=== PATIENT | male | born 1955 | race Caucasian/White ===

== ENCOUNTER 2020-11-01 14:55 | Emergency (ER) | payer MEDICARE ==
[2020-11-01 15:00] VITALS: BP 165/113; PULSE 117; RESP 20; TEMP 97.7
[2020-11-01] MEDS ORDERED: KETOROLAC 15 MG/ML 1 ML VIAL IM STA (15:12)
--- NOTE | 2020-11-01 15:14 | ED ---
General Adult HPI - General Chief complaint: Abdominal Pain Stated complaint: Back Pain Time Seen by Provider: 11/01/20 15:06 Source: patient Mode of arrival: ambulatory Limitations: no limitations - History of Present Illness Initial comments: Patient is a 64-year-old male presenting to the emergency Department with complaints of bilateral low back pain for the past 3 days. Patient states he feels like the pain is over "both of his kidneys." He states he's been taking Aleve before he golfs, it does help. Patient states today after he golfed he w ent home and mowed the lawn and then he was picking up stuff in his garage and had a hard time standing back up straight. He states the pain is never this severe. He denies any hematuria, no fevers or chills, no history of back surgeries. Denies any bowel or bladder incontinence, no numbness and tingling down his extremities. He has no further complaints. Upon arrival to the ER his vitals are stable. - Related Data Previous Rx's Medication Instructions Recorded Ketorolac [Toradol] 10 mg PO Q8HR #8 tab 11/01/20 Allergies Allergy/AdvReac Type Severity Reaction Status Date / Time Sulfa (Sulfonamide Allergy Unknown Verified 11/01/20 15:01 Antibiotics) Review of Systems ROS Statement: Those systems with pertinent positive or pertinent negative responses have been documented in the HPI. ROS Other: All systems not noted in ROS Statement are negative. Past Medical History Past Medical History: No Reported History History of Any Multi-Drug Resistant Organisms: None Reported Additional Past Surgical History / Comment(s): eye surgery Past Psychological History: No Psychological Hx Reported Smoking Status: Never smoker Past Alcohol Use History: None Reported Past Drug Use History: None Reported General Exam - General Exam Comments Initial Comments: GENERAL: Patient is well-developed and well-nourished. Patient is nontoxic and in no acute distress. HEAD: Atraumatic, normocephalic. EYES: Pupils equal round and reactive to light, extraocular movements intact, sclera anicteric, conjunctiva are normal. Eyelids were unremarkable. ENT: TMs normal, nares patent, oropharynx clear without exudates. Moist mucous membranes. NECK: Normal range of motion, supple without lymphadenopathy or JVD. LUNGS: Unlabored respirations. Breath sounds clear to auscultation bilaterally and equal. No wheezes rales or rhonchi. HEART: Regular rate and rhythm without murmurs, rubs or gallops. ABDOMEN: Soft, nontender, normoactive bowel sounds. No guarding, no rebound. No masses appreciated. : Deferred MUSCULOSKELETAL: Normal extremities with adequate strength and normal range of motion, no pitting or edema. No clubbing or cyanosis. Tenderness to palpation on lumbar paraspinals NEUROLOGICAL: Patient is alert and oriented x 3. Motor and sensory are also intact. Cranial nerves II through XII grossly intact. Symmetrical smile. Normal speech, normal gait. PSYCH: Normal mood, normal affect. SKIN: Warm, Dry, normal turgor, no rashes or lesions noted. Limitations: no limitations Course Vital Signs 11/01/20 14:56 Temperature 97.7 F Pulse Rate 117 H Respiratory 20 Rate Blood Pressure 165/113 O2 Sat by Pulse 97 Oximetry Medical Decision Making - Medical Decision Making Patient is 64-year-old male here with bilateral lumbar pain increasing over the past 3 days. His vital signs are stable. Urine shows no evidence of hematuria. X-ray showed no acute fractures dislocations. His symptoms are consistent wit h muscle skeletal or pain, spasm. I discussed these findings with the patient. I did give him a shot of Toradol today, he did report improvement in his symptoms. I recommended alternating between Tylenol and Motrin for his pain control, heat to the area, gentle stretching. I also recommended limiting his physical activity for 1-2 days. He is in agreement with this plan of care and he is stable for discharge. He can follow up with his PCP if symptoms persist. - Lab Data Lab Results 11/01/20 Range/Units 15:28 Urine Color Yellow Urine Appearance Clear (Clear) Urine pH 6.0 (5.0-8.0) Ur Specific [place] 1.025 (1.001-1.035) Urine Protein Negative (Negative) Urine Glucose (UA) Negative (Negative) Urine Ketones Negative (Negative) Urine Blood Negative (Negative) Urine Nitrite Negative (Negative) Urine Bilirubin Negative (Negative) Urine Urobilinogen <2.0 (<2.0) mg/dL Ur Leukocyte Esterase Negative (Negative) Disposition Clinical Impression: Lumbar paraspinal muscle spasm, Lumbar strain Disposition: HOME SELF-CARE Condition: Stable Instructions (If sedation given, give patient instructions): Acute Low Back Pain (ED) Additional Instructions: Please return to the Emergency Department if symptoms worsen or any other concerns. Recommend Aleve or ibuprofen for discomfort, heat to the area, warm showers. Stretching as discussed. Limited to your physical activity for 1-2 days. Follow-up with your regular doctor if symptoms persist. Prescriptions: Ketorolac [Toradol] 10 mg PO Q8HR #8 tab Is patient prescribed a controlled substance at d/c from ED?: No Referrals: Eliazar Hassan MD [Primary Care Provider] - 1-2 days Time of Disposition: 16:29
[2020-11-01 15:37] LABS: Appearance,Urine Clear (Clear); Bilirubin,Urine Negative (Negative); Blood,Urine Negative (Negative); Color,Urine Yellow; Glucose,Urine (UA) Negative (Negative); Ketones,Urine Negative (Negative); Leukocyte Esterase,Urine Negative (Negative); Nitrite,Urine Negative (Negative); Protein,Urine Negative (Negative); Specific Gravity,Urine 1.025 (1.001-1.035); Urobilinogen,Urine <2.0 mg/dL (<2.0)
--- NOTE | 2020-11-01 15:57 | XR ---
EXAMINATION TYPE: XR lumbar spine 2 or 3V DATE OF EXAM: 11/01/2020 CLINICAL HISTORY: Low back pain for 3 days. TECHNIQUE: Frontal and lateral images of the lumbar spine are obtained. COMPARISON: None FINDINGS: There are 5 lumbar type vertebral bodies identified. There is grade 1 anterolisthesis L4 o n L5. Vertebral bodies and disc space heights fairly well maintained. Overlying Soft tissues are unre markable. IMPRESSION: As above.
== END 2020-11-01 16:48 | disposition home or self-care (01) ==
LOC: EC 14:55
DX: S39.012A Strain of muscle, fascia and tendon of lower back, initial encounter (principal); R10.9 Unspecified abdominal pain; X58.XXXA Exposure to other specified factors, initial encounter
CPT/HCPCS: 81003; 72100; 99283; 96372; J1885

== ENCOUNTER → 2021-07-18 | Day surgery (SDC) | payer MEDICARE ==
[2021-07-11 12:19] VITALS: BMI 33.0
[~2021-07-18] MED LIST: BUPIVACAINE (PF) 0.25% 30 ML VIAL SQ ONE; DEXAMETHASONE SOD PHOSPHATE 4 MG/ML 1 ML VIAL IV ONE; HYDROmorphone 0.5 MG/0.5 ML SYRINGE IVP PRN; KETOROLAC 15 MG/ML 1 ML VIAL ONE; LACTATED RINGERS 1,000 ML IV ONE; LACTATED RINGERS 1,000 ML IV SCH; LIDOCAINE 1% (10MG/ML) FOR IV START INTRADERMA PRN; MIDAZOLAM 2 MG/2 ML VIAL ONE; ONDANSETRON 4 MG/2 ML VIAL IVP ONE; PHENYLEPHRINE-0.9% NACL SYG 1,000 MCG/10 ML SYRINGE ONE; PROPOFOL 10 MG/ML 20 ML VIAL IV ONE; ePHEDrine 50 MG/ML 1 ML AMP ONE; fentaNYL (PF) 50 MCG/ML 2 ML AMP ONE
[2021-07-18 13:59] VITALS: TEMP 97.1
--- NOTE | 2021-07-18 14:08 | P.OP ---
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 Postoperative Diagnosis: Same Procedure(s) Performed: Arthrodesis second toe left foot Surgeon: Omid Huertas Estimated Blood Loss (ml): 1 Description of Procedure: On the date of surgery the patient was taken to the operating room in good condition placed on the operating table supine position where an IV was started and adequate general anesthetic agents were utilized seizure was then further supplemented with 7 mL of 0.25% plain Marcaine given in a digital block to the second toe the patient's left foot The patient's left foot was then prepped and draped in the usual aseptic manner and over heavy web roll padding an ankle tourniquet was placed above the malleoli of the patient's left ankle patient's left foot and ankle were then elevated and exsanguinated of blood utilizing an Esmarch bandage. The ankle tourniquet was then inflated to approximately 250 mmHg Attention was then directed to the dorsal aspect of the second toe of the patient's left foot where an approximately 0.5 cm linear incision was made the incision was deepened via sharp dissection down through the level of the subcutaneous tissue layers all neurovascular structures encountered were identified isolated and were retracted and any bleeding vessels were clamped electrocauterized dissection was carried deep along the medial lateral sides of the proximal interphalangeal joint the ends to digitorum longus tendon was then incised in line with the level of the joint and underscored and retracted from the underlying bone collateral ligaments on either side the joint were then incised sharply the head of the proximal phalanx was then resected it a 90 angle to the shaft and removed in total from the surgical site the base of the middle phalanx was then resected and removed in total from the surgical site a 0.045 K wire was then driven distally through the middle and distal phalanx and retrograded back into the proximal phalanx holding the digit in a rectus position. An and was then shortened and coaptated and maintained utilizing 3-0 Vicryl simple interrupted suture the skin was then closed utilizing 4-0 nylon simple interrupted suture and vertical mattress sutures Adaptic Kerlix fluffs four-inch conformer and 4 inch Coban was used to form a compression dressing and the ankle tourniquet to the patient's left ankle was deflated adequate hemostatic return was seen in all digits of the left foot specifically the second toe. Room in good postoperative condition.
[2021-07-18 15:10] VITALS: BP 119/82; RESP 20
[2021-07-18 15:49] VITALS: PULSE 80
== END ==
LOC: OR 11:31
PROVIDERS: ATTEND Podiatrist Foot & Ankle Surgery
DX: M20.42 Other hammer toe(s) (acquired), left foot (principal); E78.5 Hyperlipidemia, unspecified; I10 Essential (primary) hypertension; Z88.2 Allergy status to sulfonamides; Z79.899 Other long term (current) drug therapy
CPT/HCPCS: 28285; J2250; J1100; J0690; J2405; J3010; J1885; J2370; J2704; 88304; 88311

== ENCOUNTER 2022-11-30 11:16 | Observation (INO) | payer MEDICARE ==
[2022-11-30 12:00] LABS: Basophils % (A) 0 %; Eosinophils # (A) 0.1 k/uL (0-0.7); Eosinophils % (A) 1 %; HCT 47.7 % (39.0-53.0); HGB 15.7 gm/dL (13.0-17.5); Lymphocytes # (A) 1.6 k/uL (1.0-4.8); Lymphocytes % (A) 21 %; MCH 30.2 pg (25.0-35.0); MCHC 32.8 g/dL (31.0-37.0); MCV 92.1 fL (80.0-100.0); Mean Platelet Volume 8.6; Monocytes # (A) 0.5 k/uL (0-1.0); Monocytes % (A) 7 %; Neutrophils # (A) 5.2 k/uL (1.3-7.7); Neutrophils % (A) 70 %; Platelet Count 188 k/uL (150-450); RBC 5.18 m/uL (4.30-5.90); RDW 12.8 % (11.5-15.5); WBC 7.5 k/uL (3.8-10.6)
[2022-11-30 12:09] LABS: Partial Thromboplastin Time 23.4 sec (22.0-30.0); Prothrombin Time 10.4 sec (9.0-12.0)
[2022-11-30 12:23] LABS: Albumin 3.9 g/dL (3.5-5.0); Calcium 8.9 mg/dL (8.4-10.2); Magnesium 1.8 mg/dL (1.6-2.3); Potassium 3.7 mmol/L (3.5-5.1); Total Bilirubin 0.6 mg/dL (0.2-1.3); Total Protein 6.8 g/dL (6.3-8.2)
--- NOTE | 2022-11-30 12:29 | ED ---
General Adult HPI - General Chief complaint: Chest Pain Stated complaint: chest pain Time Seen by Provider: 11/30/22 11:20 Source: patient, RN notes reviewed, old records reviewed Mode of arrival: ambulatory Limitations: no limitations - History of Present Illness Initial comments: 66 -year-old male presenting for evaluation of intermittent chest pain over the past several days. Patient describes a bilateral lower chest pain and discomfort. No associated vomiting. No dizziness. Patient reports diaphoresis. He states he has been working outside. He states that he was able to golf yesterday but did have symptoms throughout. No prior history of CAD. - Related Data Home Medications Medication Instructions Recorded Confirmed Losartan Potassium [Cozaar] 100 mg PO DAILY 07/11/21 07/11/21 Multivit-Min/FA/Lycopen/Lutein 1 each PO DAILY 07/11/21 07/11/21 [Centrum Silver Tablet] Allergies Allergy/AdvReac Type Severity Reaction Status Date / Time Sulfa (Sulfonamide Allergy Unknown Verified 11/30/22 11:20 Antibiotics) Childhood Review of Systems ROS Statement: Those systems with pertinent positive or pertinent negative responses have been documented in the HPI. ROS Other: All systems not noted in ROS Statement are negative. Past Medical History Past Medical History: Hypertension History of Any Multi-Drug Resistant Organisms: None Reported Additional Past Surgical History / Comment(s): eye surgery Past Psychological History: No Psychological Hx Reported Smoking Status: Never smoker Past Alcohol Use History: None Reported Past Drug Use History: None Reported General Exam Limitations: no limitations General appearance: alert, in no apparent distress Head exam: Present: atraumatic, normocephalic Eye exam: Present: normal appearance, PERRL ENT exam: Present: normal exam Neck exam: Present: normal inspection. Absent: tenderness, meningismus Respiratory exam: Present: normal lung sounds bilaterally. Absent: respiratory distress, wheezes Cardiovascular Exam: Present: regular rate, normal rhythm GI/Abdominal exam: Present: soft. Absent: distended, tenderness, guarding Extremities exam: Present: normal inspection, normal capillary refill. Absent: pedal edema Neurological exam: Present: alert, oriented X3 Psychiatric exam: Present: normal affect, normal mood Skin exam: Present: warm, diaphoretic Course Vital Signs 11/30/22 11:18 Temperature 97.9 F Pulse Rate 98 Respiratory 24 Rate Blood Pressure 176/105 O2 Sat by Pulse 99 Oximetry Medical Decision Making - Medical Decision Making Was pt. sent in by a medical professional or institution (CHASTITY Saxena, HISTOTECHNICIAN, urgent care, hospital, or halfway...) When possible be specific @ -No Did you speak to anyone other than the patient for history (EMS, parent, family, police, friend...)? What history was obtained from this source @ -No Did you review nursing and triage notes (agree or disagree)? Why? @ -I reviewed and agree with nursing and triage notes Were old charts reviewed (outside hosp., previous admission, EMS record, old EKG, old radiological studies, urgent care reports/EKG's, halfway records)? Report findings @ -No old charts were reviewed Differential Diagnosis (chest pain, altered mental status, abdominal pain women, abdominal pain men, vaginal bleeding, weakness, fever, dyspnea, syncope, headache, dizziness, GI bleed, back pain, seizure, CVA, palpatations, mental health, musculoskeletal)? @ -Differential Chest Pain: Stable Angina, Unstable Angina, STEMI, NSTEMI Aortic Dissection, Pneumothorax, Musculoskeletal, Esophageal Spasm GERD, Cholecystitis, Pancreatitis, Zoster, this is not meant to be an all-inclusive list. EKG interpreted by me (3pts min.). @ -[Sinus rhythm rate of 94, LA interval 169, QRS duration 86, QTC 375, Q-wave and T-wave inversion in lead 3. No ST segment elevation X-rays interpreted by me (1pt min.). @ -Chest x-ray negative for acute cardiopulmonary findings CT interpreted by me (1pt min.). @ -Negative for pulmonary embolism U/S interpreted by me (1pt. min.). @ -None done What testing was considered but not performed or refused? (CT, X-rays, U/S, labs)? Why? @ -None What meds were considered but not given or refused? Why? @ -None Did you discuss the management of the patient with other professionals (professionals i.e. CHASTITY Saxena, HISTOTECHNICIAN, lab, RT, psych nurse, oncology social worker, convex grinder operator, teacher, chief compliance officer, case work aide)? Give summary @ -[Dr. Hassan Was smoking cessation discussed for >3mins.? @ -No Was critical care preformed (if so, how long)? @ -No Were there social determinants of health that impacted care today? How? (Homelessness, low income, unemployed, alcoholism, drug addiction, transportation, low edu. Level, literacy, decrease access to med. care, half-way, rehab)? @ -No Was there de-escalation of care discussed even if they declined (Discuss DNR or withdrawal of care, Hospice)? DNR status @ -No What co-morbidities impacted this encounter? (DM, HTN, Smoking, COPD, CAD, Cancer, CVA, ARF, Chemo, Hep., AIDS, mental health diagnosis, sleep apnea, morbid obesity)? @ -Hypertension Was patient admitted / discharged? Hospital course, mention meds given and route, prescriptions, significant lab abnormalities, going to OR and other pertinent info. @ 66-year-old male with intermittent chest pain over the past several days. Patient does admit to an exertional component. Certain features do seem like this could be musculoskeletal. Chest x-ray is clear. EKG is sinus rhythm without ST segment elevation. Patient has a normal CBC, normal CMP, negative initial troponin. He did have a positive d-dimer and CT angiography was obtained which was negative for pulmonary embolism. Patient will benefit from serial cardiac enzymes, telemetry and cardiology consultation. Undiagnosed new problem with uncertain prognosis? @ -No Drug Therapy requiring intensive monitoring for toxicity (Heparin, Nitro, Insulin, Cardizem)? @ -No Were any procedures done? @ -No Diagnosis/symptom? @ Chest pain, rule out ACS Acute, or Chronic, or Acute on Chronic? @ Acute Uncomplicated (without systemic symptoms) or Complicated (systemic symptoms)? @ -default Side effects of treatment? @ -No Exacerbation, Progression, or Severe Exacerbation? @ -No Poses a threat to life or bodily function? How? (Chest pain, [place], [place], pneumonia, PE, COPD, DKA, ARF, appy, cholecystitis, CVA, Diverticulitis, Homicidal, Suicidal, threat to staff... and all critical care pts) @ Yes, chest pain - Lab Data Result diagrams: 11/30/22 11:53 11/30/22 11:53 Lab Results 11/30/22 11/30/22 11/30/22 Range/Units 11:53 11:53 11:53 WBC 7.5 (3.8-10.6) k/uL RBC 5.18 (4.30-5.90) m/uL Hgb 15.7 (13.0-17.5) gm/dL Hct 47.7 (39.0-53.0) % MCV 92.1 (80.0-100.0) fL MCH 30.2 (25.0-35.0) pg MCHC 32.8 (31.0-37.0) g/dL RDW 12.8 (11.5-15.5) % Plt Count 188 (150-450) k/uL MPV 8.6 Neutrophils % 70 % Lymphocytes % 21 % Monocytes % 7 % Eosinophils % 1 % Basophils % 0 % Neutrophils # 5.2 (1.3-7.7) k/uL Lymphocytes # 1.6 (1.0-4.8) k/uL Monocytes # 0.5 (0-1.0) k/uL Eosinophils # 0.1 (0-0.7) k/uL Basophils # 0.0 (0-0.2) k/uL PT 10.4 (9.0-12.0) sec INR 1.0 (<1.2) APTT 23.4 (22.0-30.0) sec D-Dimer (<0.60) mg/L FEU Sodium 139 (137-145) mmol/L Potassium 3.7 (3.5-5.1) mmol/L Chloride 106 (98-107) mmol/L Carbon Dioxide 23 (22-30) mmol/L Anion Gap 10 mmol/L BUN 25 H (9-20) mg/dL Creatinine 1.10 (0.66-1.25) mg/dL Est GFR (CKD-EPI)AfAm 80 (>60 ml/min/1.73 sqM) Est GFR (CKD-EPI)NonAf 69 (>60 ml/min/1.73 sqM) Glucose 112 H (74-99) mg/dL Calcium 8.9 (8.4-10.2) mg/dL Magnesium 1.8 (1.6-2.3) mg/dL Total Bilirubin 0.6 (0.2-1.3) mg/dL AST 30 (17-59) U/L ALT 29 (4-49) U/L Alkaline Phosphatase 81 (38-126) U/L Troponin I (0.000-0.034) ng/mL Total Protein 6.8 (6.3-8.2) g/dL Albumin 3.9 (3.5-5.0) g/dL 11/30/22 11/30/22 Range/Units 11:53 12:46 WBC (3.8-10.6) k/uL RBC (4.30-5.90) m/uL Hgb (13.0-17.5) gm/dL Hct (39.0-53.0) % MCV (80.0-100.0) fL MCH (25.0-35.0) pg MCHC (31.0-37.0) g/dL RDW (11.5-15.5) % Plt Count (150-450) k/uL MPV Neutrophils % % Lymphocytes % % Monocytes % % Eosinophils % % Basophils % % Neutrophils # (1.3-7.7) k/uL Lymphocytes # (1.0-4.8) k/uL Monocytes # (0-1.0) k/uL Eosinophils # (0-0.7) k/uL Basophils # (0-0.2) k/uL PT (9.0-12.0) sec INR (<1.2) APTT (22.0-30.0) sec D-Dimer 2.73 H (<0.60) mg/L FEU Sodium (137-145) mmol/L Potassium (3.5-5.1) mmol/L Chloride (98-107) mmol/L Carbon Dioxide (22-30) mmol/L Anion Gap mmol/L BUN (9-20) mg/dL Creatinine (0.66-1.25) mg/dL Est GFR (CKD-EPI)AfAm (>60 ml/min/1.73 sqM) Est GFR (CKD-EPI)NonAf (>60 ml/min/1.73 sqM) Glucose (74-99) mg/dL Calcium (8.4-10.2) mg/dL Magnesium (1.6-2.3) mg/dL Total Bilirubin (0.2-1.3) mg/dL AST (17-59) U/L ALT (4-49) U/L Alkaline Phosphatase (38-126) U/L Troponin I 0.012 (0.000-0.034) ng/mL Total Protein (6.3-8.2) g/dL Albumin (3.5-5.0) g/dL Disposition Clinical Impression: Chest pain Disposition: ADMITTED IP TO THIS HOSP Condition: Stable Is patient prescribed a controlled substance at d/c from ED?: No Referrals: Eliazar Hassan MD [Primary Care Provider] - 1-2 days Time of Disposition: 13:53
[2022-11-30] MEDS ORDERED: ASPIRIN 325 MG TAB PO STA (12:38)
--- NOTE | 2022-11-30 13:02 | XR ---
EXAMINATION TYPE: XR chest 2V DATE OF EXAM: 11/30/2022 COMPARISON: NONE HISTORY: Shortness of breath TECHNIQUE: Frontal and lateral views of the chest are obtained. FINDINGS: Scattered senescent parenchymal changes noted. Hyperinflation compatible with COPD. No evidence for infiltrate. No evidence for atelectasis. Heart size is stable. Mediastinal structures are stable and grossly unremarkable. No evidence for hilar prominence. Degenerative changes dorsal spine. IMPRESSION: 1. No evidence for acute pulmonary disease.
--- NOTE | 2022-11-30 13:42 | CT ---
EXAMINATION TYPE: CT angio chest DATE OF EXAM: 11/30/2022 COMPARISON: None HISTORY: Chest pains CT DLP: 757.8 mGycm CONTRAST: CT chest with contrast and 3D reconstruction with MIP imaging is performed with IV Contrast, patient injected with 100, wasted 11 mL of Isovue 370. Contrast-enhanced CT of the chest was performed through the course of the pulmonary arteries with raúl g and mediastinal window settings submitted. 3D reconstruction with MIP imaging was also performed. PULMONARY ARTERIES: The pulmonary arteries and their major tributaries are patent. I do not see curt dence for sizable filling defect to suggest pulmonary embolic process. LUNGS: The lungs are clear and free of infiltrate. No evidence for atelectasis. No pulmonary nodule or mass is detected. No pleural effusion. MEDIASTINUM: Thoracic aorta is of normal caliber,however, evaluation is limited given timing of the contrast bolus. If there is concern for thoracic aortic pathology consider SAM. Correlate clinicall y . The heart is not enlarged. No evidence for mediastinal mass. No mediastinal lymph nodes greater than 1cm. HILAR STRUCTURES: No evidence for mass. No hilar lymph nodes greater than 1 cm. UPPER ABDOMEN: No significant abnormality is seen. IMPRESSION: 1. No evidence for Pulmonary embolism at this time.
[2022-11-30] MEDS ORDERED: NALOXONE 0.4 MG/ML 1 ML VIAL IV PRN (13:50)
[2022-11-30] MEDS ORDERED: ACETAMINOPHEN TAB 325 MG TAB PO PRN (13:50)
[2022-11-30] MEDS: METOPROLOL SUCCINATE (ER) 25 MG TAB.ER.24H PO SCH (20:10)
[2022-12-01] MEDS: MULTIVITAMINS, THERA 1 EACH TAB PO SCH (08:40)
[2022-12-01] MEDS: LOSARTAN-HCTZ 50-12.5 MG 1 EACH TAB PO SCH (08:40)
[2022-12-01] MEDS ORDERED: ATORVASTATIN 40 MG TAB PO SCH (09:00)
--- NOTE | 2022-12-01 10:40 | P.HPIM ---
History of Present Illness 66-year-old pleasant male came in with complaints of intermittent chest pain lasting for few minutes on and off nonexertional nonradiating moderate severity, nonpleuritic in nature across the chest worsens with the chest wall movement CT of the chest was done which did not show any pulmonary embolism troponins are not elevated EKG did not show any significant abnormality there may be some nonspecific ST-T wave changes patient denied any history of cardiac disease in the past denied a smoking history denied any family history of heart disease. Patient chest pain is not associated lightheadedness diaphoresis. REVIEW OF SYSTEMS: CONSTITUTIONAL: No fever, no malaise, no fatigue. HEENT: No recent visual problems or hearing problems. Denied any sore throat. CARDIOVASCULAR: No orthopnea, PND, no palpitations, no syncope. PULMONARY: No shortness of breath, no cough, no hemoptysis. GASTROINTESTINAL: No diarrhea, no nausea, no vomiting, no abdominal pain. NEUROLOGICAL: No headaches, no weakness, no numbness. HEMATOLOGICAL: Denies any bleeding or petechiae. GENITOURINARY: Denies any burning micturition, frequency, or urgency. MUSCULOSKELETAL/RHEUMATOLOGICAL: Denies any joint pain, swelling, or any muscle pain. ENDOCRINE: Denies any polyuria or polydipsia. The rest of the 14-point review of systems is negative. PHYSICAL EXAMINATION: GENERAL: The patient is alert and oriented x3, not in any acute distress. Well developed, well nourished. Obese HEENT: Pupils are round and equally reacting to light. EOMI. No scleral icterus. No conjunctival pallor. Normocephalic, atraumatic. No pharyngeal erythema. No thyromegaly. CARDIOVASCULAR: S1 and S2 present. No murmurs, rubs, or gallops. PULMONARY: Chest is clear to auscultation, no wheezing or crackles. ABDOMEN: Soft, nontender, nondistended, normoactive bowel sounds. No palpable organomegaly. MUSCULOSKELETAL: No joint swelling or deformity. EXTREMITIES: No cyanosis, clubbing, or pedal edema. NEUROLOGICAL: Gross neurological examination did not reveal any focal deficits. SKIN: No rashes. Assessment and plan -Chest pain: Rule out acute coronary syndromes. Although patient may need a stress test. Outpatient versus inpatient stress test as per cardiology and patient. If cardiology clears the patient patient will be discharged with a fo llow-up for outpatient stress test. -hypertension: Patient will be resumed on his home medications Rule out pulmonary embolism Patient probably will be discharged today if cleared by cardiology Past Medical History Past Medical History: Hypertension History of Any Multi-Drug Resistant Organisms: None Reported Additional Past Surgical History / Comment(s): eye surgery Past Psychological History: No Psychological Hx Reported Smoking Status: Never smoker Past Alcohol Use History: None Reported Past Drug Use History: None Reported Medications and Allergies Home Medications Medication Instructions Recorded Confirmed Type Multivit-Min/FA/Lycopen/Lutein 1 tab PO DAILY 07/11/21 11/30/22 History [Centrum Silver Tablet] Atorvastatin [Lipitor] 40 mg PO DAILY 11/30/22 11/30/22 History Losartan/Hydrochlorothiazide 1 tab PO DAILY 11/30/22 11/30/22 History [Losartan-Hctz 100-25 mg Tab] Metoprolol Succinate (ER) [Toprol 25 mg PO HS 11/30/22 11/30/22 History XL] Allergies Allergy/AdvReac Type Severity Reaction Status Date / Time Sulfa (Sulfonamide Allergy Unknown Verified 11/30/22 14:21 Antibiotics) Childhood Physical Exam Vitals: Vital Signs Temp Pulse Pulse Resp BP BP Pulse Ox 12/01/22 07:52 97 12/01/22 07:35 97.6 F 60 15 151/90 97 12/01/22 03:04 98.4 F 64 16 121/61 97 11/30/22 19:46 98.0 F 62 15 122/73 96 11/30/22 14:55 97.8 F 64 17 163/95 94 L 11/30/22 14:43 67 18 137/87 11/30/22 14:00 145/90 97 11/30/22 13:56 65 16 145/90 97 11/30/22 11:18 97.9 F 98 24 176/105 99 Intake and Output 11/30/22 12/01/22 12/01/22 22:59 06:59 14:59 Intake Total 118 Balance 118 Intake: Oral 118 Other: # Voids 1 2 Results CBC & Chem 7: 11/30/22 11:53 11/30/22 11:53 Labs: Abnormal Lab Results - Last 24 Hours (Table) 11/30/22 11/30/22 Range/Units 11:53 12:46 D-Dimer 2.73 H (<0.60) mg/L FEU BUN 25 H (9-20) mg/dL Glucose 112 H (74-99) mg/dL Thrombosis Risk Factor Assmnt - Choose All That Apply Each Risk Factor Represents 2 Points: Age 61-74 years Thrombosis Risk Factor Assessment Total Risk Factor Score: 2 Thrombosis Risk Factor Assessment Level: Low Risk
--- NOTE | 2022-12-01 10:41 | P.DS ---
Providers Date of admission: 11/30/22 13:50 Attending physician: Eliazar Hassan Consults: 11/30/22 13:50 Consult Physician Routine Consulting Provider: Macy Proctor Consult Reason/Comments: CP Do you want consulting provider notified?: Yes Primary care physician: Eliazar Hassan Hospital Course: Refer to History of present illness for further details Patient Condition at Discharge: Stable Plan - Discharge Summary Discharge Rx Participant: No New Discharge Prescriptions: Continue Multivit-Min/FA/Lycopen/Lutein [Centrum Silver Tablet] 1 tab PO DAILY Atorvastatin [Lipitor] 40 mg PO DAILY Metoprolol Succinate (ER) [Toprol XL] 25 mg PO HS Losartan/Hydrochlorothiazide [Losartan-Hctz 100-25 mg Tab] 1 tab PO DAILY Discharge Medication List Multivit-Min/FA/Lycopen/Lutein [Centrum Silver Tablet] 1 tab PO DAILY 07/11/21 [History] Atorvastatin [Lipitor] 40 mg PO DAILY 11/30/22 [History] Losartan/Hydrochlorothiazide [Losartan-Hctz 100-25 mg Tab] 1 tab PO DAILY 11/30/22 [History] Metoprolol Succinate (ER) [Toprol XL] 25 mg PO HS 11/30/22 [History] Follow up Appointment(s)/Referral(s): Eliazar Hassan MD [Primary Care Provider] - 3 Days Discharge Disposition: HOME SELF-CARE
[2022-12-01] MEDS ORDERED: ATORVASTATIN 40 MG TAB PO STA (11:22)
[2022-12-01] MEDS ORDERED: NITROGLYCERIN SL TABS 0.4 MG TAB SUBLINGUAL PRN ×2 (11:22→14:32)
[2022-12-01] MEDS ORDERED: ALPRAZolam 0.5 MG TAB PO PRN (11:22)
[2022-12-01] MEDS ORDERED: ALPRAZolam 0.25 MG TAB PO PRN (11:22)
[2022-12-01] MEDS ORDERED: ASPIRIN 325 MG TAB PO STA (11:22)
--- NOTE | 2022-12-01 11:51 | P.CRDCN ---
History of Present Illness Consult date: 12/01/22 Requesting physician: Ar More Reason for Consult (text): chest pain Chief complaint: exertional chest pain History of present illness: This is a pleasant 66-year-old gentleman with a past medical history of hypertension and hyperlipidemia. Denies history of diabetes or CAD. He does not follow with a sole leveler machine and has not had prior cardiac workup. He is typically very active, golfing and taking Classes at the [facility]. He is a nonsmoker and nondrinker. He presented to the emergency department after developing new onset chest/epigastric discomfort with activity. His first ep isode began while in his boot camp class on Friday which caused him to stop the activity and the discomfort was relieved after 10-15 minutes of rest. He went golfing on Friday and developed the discomfort a couple times while golfing. Most recently he was helping a friend do yard work, putting in mulch, yesterday and developed the discomfort at which time his friend suggested he go to the emergency department. EKG shows sinus bradycardia with evidence of possible prior inferior ID with T-wave inversions in the inferior leads. Troponins have been 0.012, 0.016 and 0.014. He did have some of the discomfort while in the emergency room last night but has been chest pain free since arrival to the observation unit. Blood pressure was elevated on admission but her through the night last night and somewhat high this morning prior to receiving his morning medications. He is currently on atorvastatin 40 mg by mouth daily, Hyzaar [id number] milligrams one tablet daily, metoprolol succinate 25 mg by mouth daily at bedtime and a multivitamin. He denies any complaints of shortness of breath, or thopnea, PND or edema. He's had no palpitations, dizziness or syncope. Denies any nausea, vomiting, reflux or heartburn. He's had no diaphoresis. Past Medical History Past Medical History: Hypertension History of Any Multi-Drug Resistant Organisms: None Reported Additional Past Surgical History / Comment(s): eye surgery Past Psychological History: No Psychological Hx Reported Smoking Status: Never smoker Past Alcohol Use History: None Reported Past Drug Use History: None Reported Medications and Allergies Home Medications Medication Instructions Recorded Confirmed Type Multivit-Min/FA/Lycopen/Lutein 1 tab PO DAILY 07/11/21 11/30/22 History [Centrum Silver Tablet] Atorvastatin [Lipitor] 40 mg PO DAILY 11/30/22 11/30/22 History Losartan/Hydrochlorothiazide 1 tab PO DAILY 11/30/22 11/30/22 History [Losartan-Hctz 100-25 mg Tab] Metoprolol Succinate (ER) [Toprol 25 mg PO HS 11/30/22 11/30/22 History XL] Allergies Allergy/AdvReac Type Severity Reaction Status Date / Time Sulfa (Sulfonamide Allergy Unknown Verified 11/30/22 14:21 Antibiotics) Childhood Physical Exam Vitals: Vital Signs Temp Pulse Pulse Resp BP BP Pulse Ox 12/01/22 07:52 97 12/01/22 07:35 97.6 F 60 15 151/90 97 12/01/22 03:04 98.4 F 64 16 121/61 97 11/30/22 19:46 98.0 F 62 15 122/73 96 11/30/22 14:55 97.8 F 64 17 163/95 94 L 11/30/22 14:43 67 18 137/87 11/30/22 14:00 145/90 97 11/30/22 13:56 65 16 145/90 97 Intake and Output 11/30/22 12/01/22 12/01/22 22:59 06:59 14:59 Intake Total 118 Balance 118 Intake: Oral 118 Other: # Voids 1 2 PHYSICAL EXAMINATION: This is a 66-year-old male in no apparent distress at the time of my examination.. HEENT: Head is atraumatic, normocephalic. Pupils are equal, round. Sclerae anicteric. Conjunctivae are clear. Mucous membranes of the mouth are moist. Neck is supple. There is no elevated jugular venous pressure. No carotid bruit is heard. CHEST EXAMINATION: Clear to auscultation bilaterally. No wheezes rales or rhonchi. Respirations even and nonlabored. HEART EXAMINATION: Heart regular, positive S1 and S2. No S3. No S4. No clicks, rubs or murmurs. ABDOMEN: Soft, nontender. Bowel sounds are heard. No organomegaly noted. EXTREMITIES: 2+ peripheral pulses with no evidence of peripheral edema and no calf tenderness noted. NEUROLOGIC EXAMINATION: Patient is awake, alert and oriented x3. Results 11/30/22 11:53 11/30/22 11:53 Cardiac Enzymes 11/30/22 11/30/22 11/30/22 Range/Units 11:53 11:53 14:26 AST 30 (17-59) U/L Troponin I 0.012 0.016 (0.000-0.034) ng/mL 11/30/22 Range/Units 18:02 AST (17-59) U/L Troponin I 0.014 (0.000-0.034) ng/mL Coagulation 11/30/22 Range/Units 11:53 PT 10.4 (9.0-12.0) sec APTT 23.4 (22.0-30.0) sec CBC 11/30/22 Range/Units 11:53 WBC 7.5 (3.8-10.6) k/uL RBC 5.18 (4.30-5.90) m/uL Hgb 15.7 (13.0-17.5) gm/dL Hct 47.7 (39.0-53.0) % Plt Count 188 (150-450) k/uL Comprehensive Metabolic Panel 11/30/22 Range/Units 11:53 Sodium 139 (137-145) mmol/L Potassium 3.7 (3.5-5.1) mmol/L Chloride 106 (98-107) mmol/L Carbon Dioxide 23 (22-30) mmol/L BUN 25 H (9-20) mg/dL Creatinine 1.10 (0.66-1.25) mg/dL Glucose 112 H (74-99) mg/dL Calcium 8.9 (8.4-10.2) mg/dL AST 30 (17-59) U/L ALT 29 (4-49) U/L Alkaline Phosphatase 81 (38-126) U/L Total Protein 6.8 (6.3-8.2) g/dL Albumin 3.9 (3.5-5.0) g/dL Current Medications Generic Name Dose Route Start Last Admin Trade Name Freq PRN Reason Stop Dose Admin Acetaminophen 650 mg 11/30/22 13:50 Acetaminophen Tab 325 Mg Tab PO Q6HR PRN Mild Pain or Fever > 100.5 Alprazolam 0.25 mg 12/01/22 11:22 Alprazolam 0.25 Mg Tab PO Q6HR PRN Mild Anxiety Alprazolam 0.5 mg 12/01/22 11:22 Alprazolam 0.5 Mg Tab PO Q6HR PRN Moderate Anxiety Aspirin 81 mg 12/02/22 09:00 Aspirin 81 Mg PO DAILY JOHN Atorvastatin Calcium 40 mg 12/01/22 09:00 12/01/22 08:40 Atorvastatin 40 Mg Tab PO 40 mg DAILY JOHN Administration HCTZ/Losartan Potassium 2 each 12/01/22 09:00 12/01/22 08:40 Losartan-Hctz 50-12.5 Mg 1 Each Tab PO 2 each DAILY JOHN Administration Heparin Sodium (Porcine) 10, 1,001 mls @ 999 mls/hr 12/02/22 07:00 000 unit/ Sodium Chloride IRRIGATION 12/02/22 23:00 ONCE PRN INTRA-OP Heparin Sodium (Porcine) 2,500 250.5 mls @ 250 mls/hr 12/02/22 07:00 unit/ Sodium Chloride IRRIGATION 12/02/22 23:00 ONCE PRN INTRA-OP Metoprolol Succinate 25 mg 11/30/22 21:00 11/30/22 20:10 Metoprolol Succinate (Er) 25 Mg Tab.Er.24h PO 25 mg HS JOHN Administration Multivitamins 1 each 12/01/22 09:00 12/01/22 08:40 Multivitamins, Thera 1 Each Tab PO 1 each DAILY JOHN Administration Naloxone HCl 0.2 mg 11/30/22 13:50 Naloxone 0.4 Mg/Ml 1 Ml Vial IV Q2M PRN Opioid Reversal Nitroglycerin 0.4 mg 12/01/22 11:22 Nitroglycerin Sl Tabs 0.4 Mg Tab SUBLINGUAL Q5M PRN Chest Pain Intake and Output 11/30/22 12/01/22 12/01/22 22:59 06:59 14:59 Intake Total 118 Balance 118 Intake: Oral 118 Other: # Voids 1 2 11/30/22 11:53 11/30/22 11:53 Assessment and Plan Assessment: #1 new onset exertional chest/epigastric discomfort with EKG abnormalities in the inferior leads, concerning for angina #2 hypertension #3 hyperlipidemia Plan: From cardiology's perspective we will add an aspirin 81 mg by mouth daily. We will schedule the patient to have echocardiogram with Doppler study. We re commend the patient undergo coronary angiography and the patient and his are agreeable. The risks, benefits and alternative therapies for the above- mentioned procedure and for both sedation/analgesia as well as necessary blood product administration, if indicated, have been discussed with the patient. The patient has indicated understanding and acceptance of the risks and procedures discussed. Questions have been answered appropriately and he is agreeable to move forward with the above stated procedure. Further recommendations to follow depending on the findings. UNION ORGANISER note has been reviewed, I agree with a documented findings and plan of care. Patient was seen and examined.
[2022-12-01] MEDS ORDERED: VERAPAMIL 2.5 MG/ML 2 ML AMP ONE (12:06)
[2022-12-01] MEDS ORDERED: fentaNYL (PF) 50 MCG/ML 2 ML AMP ONE (12:28)
[2022-12-01] MEDS ORDERED: IV FLUID CONTINUATION 1,000 ML IV ONE (12:34)
[2022-12-01] MEDS ORDERED: fentaNYL (PF) 50 MCG/ML 2 ML AMP IV ONE (12:52)
[2022-12-01] MEDS: LIDOCAINE 1% INJ 10MG/ML (5 ML VIAL-PF) SQ ONE ×2 (12:54→13:32)
[2022-12-01] MEDS: VERAPAMIL SYRINGE (5 MG/10 ML) INTRAARTER ONE ×2 (12:57→13:36)
[2022-12-01] MEDS ORDERED: IOPAMIDOL-370 100ML BTL INJ ONE ×3 (13:32→14:14)
[2022-12-01] MEDS ORDERED: HEPARIN SODIUM 1,000 UN/ML (10ML VL) ONE (13:39)
[2022-12-01] MEDS ORDERED: CLOPIDOGREL 75 MG TAB ONE (13:39)
[2022-12-01] MEDS ORDERED: CLOPIDOGREL 75 MG TAB PO ONE (13:42)
[2022-12-01] MEDS ORDERED: NITROGLYCERIN 1000MCG/10ML SYRINGE INTRACORON ONE (14:13)
[2022-12-01] MEDS ORDERED: HEPARIN SODIUM 1,000 UN/ML (10ML VL) IV ONE (14:16)
[2022-12-01] MEDS ORDERED: ZOLPIDEM 5 MG TAB PO PRN (14:32)
[2022-12-01] MEDS ORDERED: MAG HYDROX/AL HYDROX/SIMETH 30 ML CUP PO PRN (14:32)
[2022-12-01] MEDS ORDERED: ATROPINE SULFATE 0.1 MG/ML 10ML SYRINGE IV PRN (14:32)
[2022-12-01] MEDS ORDERED: RX INFO: IV CONTRAST WAS GIVEN 1 EACH MISC MISCELLANE PRN (14:32)
[2022-12-01] MEDS ORDERED: SODIUM CHLORIDE 0.9% 1,000 ML in EMPTY BAG 1 BAG IV SCH (14:45)
--- NOTE | 2022-12-01 14:45 | P.CARDCATH ---
Date of Procedure: 12/01/22 Description of Procedure: Cardiac Catheterization: The patient is a 66-year-old male, active with a history of hypertension who presented with symptoms of new onset exertional chest discomfort. His cardiac enzymes and EKG showed no acute changes. Recommendations were made regarding cardiac catheterization, the risks and the complications were discussed with the patient who is in full understanding and agreement. Procedure Description: Patient was brought to laboratory apparatus glass blower in fasting semi-sedated state after receiving Fentanyl and Benadryl achieiving moderate conscious sedated state. Using Xylocaine Anesthesia and Seldinger technique, a 6-Egyptian sheath was introduced in the right radial artery . Subsequently, selective coronary angiography was performed using a 5-Egyptian 3.5 bend left Rachelle catheter. There was inability to cannulate the right coronary artery because of severe tortuosity, attempt to do that using a 5-Egyptian 3.5, 5- Egyptian Rachelle as well as a Igor and Diamond catheters were unsuccessful. At that time using Xylocaine anesthesia in the Seldinger technique a 6-Egyptian sheath introduced in the left radial artery. Right coronary angiography was performed using 5-Egyptian 4 bend right Rachelle catheter. Multiple views of the coronary artery including hemiaxial views were obtained. The left Rachelle catheter was used to cross the aortic valve and LVEDP was calculated. PCI: After removing the catheters a 6-Egyptian EBU 3.75 guiding catheter was introduced and after cannulating the left main a 0.014 BMW J-wire was advanced and positioned in the distal LAD, subsequently a 2.5 x 12 mm NC Treck balloon was advanced and multiple inflations at 8 jair were done. After removing the balloon a [employer] pala eye intravascular ultrasound was advanced and imaging were obtained. After removing the catheter a 3.0 x 38 mm Xience Skypoint stent was deployed at 16 jair. After removing the balloon repeat intravascular imaging was performed and subsequently a 3.25 x 15 mm NC treck was advanced and inflation in the distal segment of the stent at 12 jair were done and subsequently a 4.0 x 15 mm NC treck was advanced and inflations in the proximal segment of the stent 12 jair were done. Subsequently the wire was withdrawn back in the guiding catheter images were obtained and revealed stable successful stenting. Following that, catheter and sheath were removed. Hemostasis was obtained with deployment of TR band . There was no immediate complication. Patient was returned to room in s table condition. Of note, the patient received a total of 9000 units of intravenous heparin as well as intra-arterial verapamil. He received an oral loading dose of clopidogrel. His ACT was monitored. He had chest discomfort and mild EKG changes that resolved at the end of the procedure. Findings: Fluoroscopy revealed calcifications of the coronary arteries, predominantly the LAD Left main: This is a large-size vessel, bifurcating into left circumflex and LAD, the left main has no high-grade stenosis LAD: This is a large-size vessel, reaching to the apex, giving rise a moderate diagonal branch proximally. The proximal segment has a long tubular lesion, calcified up to 90%. The mid LAD has a 50% plaque. The proximal segment of the diagonal branch is a tubular 80% stenosis. Left circumflex: This is a nondominant vessel giving rise to 2 obtuse marginal branch, the second one is large in caliber. The left circumflex is diffusely diseased proximal segment of the second obtuse marginal branch has an area of stenosis up to 80%. RCA: This is a dominant vessel bifurcating distally into PDA and PLV, the right coronary artery has no evidence of high-grade stenosis Left Ventriculogram: Not performed Hemodynamics: There was no gradient across the aortic valve, LVEDP was 14-16 mmHg Conclusion: 1. Calcified coronary arteries 2. Severe stenosis in the proximal and mid LAD 3. Severe stenosis in the OM 2 4. Successful stenting of the proximal and mid LAD with reduction of stenosis from 90% to less than 5% with intravascular ultrasound imaging. There was slow flow into the diagonal branch. Recommendations: The patient will continue on aspirin and Plavix for at least 6 months in addition to aggressive coronary risk modifications. Depending on his symptoms the decision would be made regarding attempt to revascularize the left circumflex OM 2. The findings and the recommendations were discussed with the patient and the family and they were in full understanding and agreement. Duration of sedation is 83 minutes.
[2022-12-01] MEDS: METOPROLOL SUCCINATE (ER) 25 MG TAB.ER.24H PO SCH (20:37)
[2022-12-01] MEDS ORDERED: ATORVASTATIN 80 MG TAB PO SCH (21:00)
[2022-12-02 06:25] LABS: African American GFR (CKD) >90 (>60 ml/min/1.73 sqM); Anion Gap 7 mmol/L; Blood Urea Nitrogen 17 mg/dL (9-20); Calcium 8.8 mg/dL (8.4-10.2); Carbon Dioxide 26 mmol/L (22-30); Chloride 104 mmol/L (98-107); Glucose 113 mg/dL (74-99); Non-African American GFR(CKD) 87 (>60 ml/min/1.73 sqM); Potassium 3.9 mmol/L (3.5-5.1); Sodium 137 mmol/L (137-145)
[2022-12-02] MEDS ORDERED: HEPARIN SODIUM,PORCINE 10,000 UNIT in SODIUM CHLORIDE 0.9% 1,000 ML IRRIGATION PRN (07:00)
[2022-12-02] MEDS ORDERED: HEPARIN SODIUM,PORCINE 2,500 UNIT in SODIUM CHLORIDE 0.9% 250 ML IRRIGATION PRN (07:00)
[2022-12-02] MEDS: LOSARTAN-HCTZ 50-12.5 MG 1 EACH TAB PO SCH (08:15)
[2022-12-02] MEDS: MULTIVITAMINS, THERA 1 EACH TAB PO SCH (08:15)
[2022-12-02 08:36] VITALS: BP 161/100; PULSE 68; RESP 20; TEMP 97.6
[2022-12-02] MEDS ORDERED: ASPIRIN 81 MG PO SCH (09:00)
[2022-12-02] MEDS ORDERED: CLOPIDOGREL 75 MG TAB PO SCH (09:00)
--- NOTE | 2022-12-02 10:20 | P.PN ---
Subjective HISTORY OF PRESENT ILLNESS: This is 66-year-old male who underwent cardiac catheterization with PCI to the proximal and mid LAD. Patient examined this morning. He is sitting up in the chair. He denies chest pain or pressure. Denies shortness of breath. Vital signs are stable. Right radial site with pulse present. PHYSICAL EXAM: VITAL SIGNS: Reviewed. GENERAL: Well-developed in no acute distress. NECK: Supple. No JVD or thyromegaly LUNGS: Respirations even and unlabored. Lungs essentially clear to auscultation bilaterally. HEART: Regular rate and rhythm. S1 and S2 heard. EXTREMITIES: Normal range of motion. No clubbing or cyanosis. Peripheral pulses intact. No lower extremity edema ASSESSMENT: Chest pain, status post cardiac catheterization with PCI to the proximal and mid LAD Severe stenosis of OM2 Hypertension Hyperlipidemia PLAN: Continue dual antiplatelet therapy with aspirin and Plavix Continue high-intensity statin Continue additional cardiac medications Patient may be discharged home today from a cardiac standpoint Nurse practitioner note has been reviewed by physician. Signing provider agrees with the documented findings, assessment, and plan of care. Objective - Vital Signs Vital signs: Vital Signs Temp 97.6 F 12/02/22 07:00 Pulse 68 12/02/22 07:00 Resp 20 12/02/22 07:00 BP 161/100 12/02/22 07:00 Pulse Ox 94 L 12/02/22 08:23 FiO2 21 12/02/22 08:23 Intake & Output 12/01/22 12/02/22 12/02/22 18:59 06:59 18:59 Intake Total 150 Balance 150 Intake: IV 150 Other: # Voids 1 3 - Labs CBC & Chem 7: 11/30/22 11:53 12/02/22 05:19 Labs: Abnormal Lab Results - Last 24 Hours (Table) 12/02/22 Range/Units 05:19 Glucose 113 H (74-99) mg/dL
[2022-12-02 11:49] LABS: Chol/HDL Ratio 2.94 Ratio; LDL Cholesterol,Calculated 81.6 mg/dL
--- NOTE | 2022-12-02 12:49 | CA ---
Transthoracic Echo Report Name: Luis Manuel Cotton Age: 66 Gender: M : 1955 Exam Date: 12/02/2022 11:43 Exam Location: [place] [facility] Ht (in): 73 Wt (lb): 250 Ordering Physician: Yovana New Attending/Referring Phys: [id number], [employer] Safety Equipment Tester Rosa Adler RDCS Procedure CPT: Indications: Chest Pain Cardiac Hx: Technical Quality: Fair Contrast 1: Total Dose (mL): Contrast 2: Total Dose (mL): MEASUREMENTS (Male / Female) Normal Values 2D ECHO LV Diastolic Diameter PLAX 5.1 cm 4.2 - 5.9 / 3.9 - 5.3 cm LV Systolic Diameter PLAX 2.7 cm IVS Diastolic Thickness 1.3 cm 0.6 - 1.0 / 0.6 - 0.9 cm LVPW Diastolic Thickness 1.3 cm 0.6 - 1.0 / 0.6 - 0.9 cm LV Relative Wall Thickness 0.5 RV Internal Dim ED PLAX 3.2 cm LVOT Diameter 2.4 cm LA Systolic Diameter LX 4.1 cm 3.0 - 4.0 / 2.7 - 3.8 cm LV Diastolic Volume MOD BP 97.1 cm??? 67 - 155 / 56 - 104 cm??? LV Systolic Volume MOD BP 57.3 cm??? 22 - 58 / 19 - 49 cm??? LV Ejection Fraction MOD BP 40.9 % >= 55 % LV Diastolic Volume MOD 4C 105.8 cm??? LV Systolic Volume MOD 4C 61.4 cm??? LV Ejection Fraction MOD 4C 41.9 % LV Diastolic Length 4C 8.2 cm LV Systolic Length 4C 7.2 cm LV Diastolic Volume MOD 2C 82.2 cm??? LV Systolic Volume MOD 2C 52.3 cm??? LV Ejection Fraction MOD 2C 36.4 % LV Diastolic Length 2C 7.4 cm LV Systolic Length 2C 7.0 cm LA Volume 51.1 cm??? 18 - 58 / 22 - 52 cm??? M-MODE Aortic Root Diameter MM 3.5 cm MV E Point Septal Separation 0.6 cm AV Cusp Separation MM 1.9 cm DOPPLER AV Peak Velocity 180.4 cm/s AV Peak Gradient 13.0 mmHg MV Area PHT 2.6 cm??? Mitral E Point Velocity 60.2 cm/s Mitral A Point Velocity 68.4 cm/s Mitral E to A Ratio 0.9 MV Deceleration Time 290.0 ms MV E' Velocity 6.1 cm/s Mitral E to MV E' Ratio 9.9 TR Peak Velocity 284.3 cm/s TR Peak Gradient 32.3 mmHg Right Ventricular Systolic Press 37.0 mmHg FINDINGS Left Ventricle Left ventricular ejection fraction is estimated at 50-55 %. Left ventricular cavity size normal. Mild concentric left ventricular hypertrophy. Right Ventricle Normal right ventricular size and function. Mild pulmonary hypertension. Right Atrium Normal right atrial size. Left Atrium Normal left atrial size. Mitral Valve Structurally normal mitral valve. Mild mitral regurgitation. Aortic Valve Trileaflet aortic valve. Aortic valve sclerosis. No aortic valve stenosis or regurgitation. Tricuspid Valve Structurally normal tricuspid valve. Mild tricuspid regurgitation. Pulmonic Valve Structurally normal pulmonic valve. Pericardium Normal pericardium. No pericardial effusion. Aorta Normal size aortic root and proximal ascending aorta. CONCLUSIONS Normal LV systolic function Previewed by: Dr. Дмитрий Romero MD (Electronically Signed) Final Date: 02 December 2022 12:48
== END 2022-12-02 14:16 | disposition home or self-care (01) ==
LOC: EC 11:16 → 6NMEDSUR 13:50
PROVIDERS: ADMIT Internal Medicine; ATTEND Internal Medicine
DX: R07.89 Other chest pain (principal); I25.10 Atherosclerotic heart disease of native coronary artery without angina pectoris; R10.13 Epigastric pain; I10 Essential (primary) hypertension; E78.5 Hyperlipidemia, unspecified; Z79.899 Other long term (current) drug therapy; Z88.2 Allergy status to sulfonamides
CPT/HCPCS: 99285; 36415; 94760 ×2; 93005; 93306; 92978; 93458; 85379; 80061; 80053; 80048; 83735; 84484; 85025; 85610; 85730; 71046; 71275; G0378 ×3; C9600; C1769 ×3; C1887; C1894; C1753; C1874; C1725 ×3; J1644 ×2; J2001; J3010; Q9967 ×2

== ENCOUNTER → 2022-12-26 | Outpatient (CLI) | payer MEDICARE ==
[2022-12-26 11:00] LABS: ALT 40 U/L (10-49); AST 25 U/L (14-35); Albumin 4.1 d/dL (3.8-4.9); Albumin/Globulin Ratio 1.58 Ratio (1.60-3.17); Alkaline Phosphatase 95 U/L (41-126); BUN/Creat Ratio 19.18 Ratio (12.00-20.00); Blood Urea Nitrogen 21.1 mg/dL (9.0-27.0); Calcium 9.2 mg/dL (8.7-10.3); Carbon Dioxide 27.6 mmol/L (21.6-31.8); Chloride 105 mmol/L (96-109); Chol/HDL Ratio 2.28 Ratio; Globulin 2.6 d/dL (1.6-3.3); Glucose 111 mg/dL (70-110); LDL Cholesterol,Calculated 56.9 mg/dL (0.0-131.0); Potassium 4.3 mmol/L (3.5-5.5); Sodium 141 mmol/L (135-145); Total Bilirubin 0.4 mg/dL (0.3-1.2); Total Protein 6.7 d/dL (6.2-8.2); VLDL Calculation 11.08 mg/dL (5.00-40.00)
== END | disposition home or self-care (01) ==
LOC: LABWHC1 07:02
PROVIDERS: ATTEND Internal Medicine Interventional Cardiology
DX: E78.2 Mixed hyperlipidemia (principal)
CPT/HCPCS: 36415; 80053; 80061

== ENCOUNTER 2023-01-02 05:39 | Day surgery (SDC) | payer MEDICARE ==
[2023-01-02] MEDS ORDERED: HEPARIN SODIUM,PORCINE 10,000 UNIT in SODIUM CHLORIDE 0.9% 1,000 ML IRRIGATION PRN (05:58)
[2023-01-02] MEDS ORDERED: ALPRAZolam 0.25 MG TAB PO PRN (05:58)
[2023-01-02] MEDS ORDERED: HEPARIN SODIUM,PORCINE 2,500 UNIT in SODIUM CHLORIDE 0.9% 250 ML IRRIGATION PRN (05:58)
[2023-01-02] MEDS ORDERED: ALPRAZolam 0.5 MG TAB PO PRN (05:58)
[2023-01-02] MEDS ORDERED: NITROGLYCERIN SL TABS 0.4 MG TAB SUBLINGUAL PRN ×2 (05:58→08:35)
[2023-01-02] MEDS ORDERED: SODIUM CHLORIDE 0.9% 1,000 ML in EMPTY BAG 1 BAG IV SCH ×2 (05:58→08:45)
[2023-01-02] MEDS ORDERED: SODIUM CHLORIDE 0.9% 1,000 ML IV ONE (06:10)
[2023-01-02 06:42] VITALS: RESP 16; TEMP 97.1
[2023-01-02 06:44] LABS: Basophils % (A) 0 %; Eosinophils % (A) 0 %; HGB 15.5 gm/dL (13.0-17.5); Lymphocytes # (A) 1.1 k/uL (1.0-4.8); Lymphocytes % (A) 16 %; MCH 30.5 pg (25.0-35.0); MCV 92.4 fL (80.0-100.0); Monocytes # (A) 0.5 k/uL (0-1.0); Monocytes % (A) 8 %; Neutrophils # (A) 4.7 k/uL (1.3-7.7); Neutrophils % (A) 73 %; Platelet Count 195 k/uL (150-450); RBC 5.08 m/uL (4.30-5.90); RDW 13.1 % (11.5-15.5); WBC 6.5 k/uL (3.8-10.6)
[2023-01-02] MEDS ORDERED: ASPIRIN 325 MG TAB PO ONE (07:00)
[2023-01-02] MEDS ORDERED: ATORVASTATIN 80 MG TAB PO ONE (07:00)
[2023-01-02] MEDS ORDERED: HEPARIN SODIUM 1,000 UN/ML (10ML VL) ONE (07:15)
[2023-01-02] MEDS ORDERED: VERAPAMIL 2.5 MG/ML 2 ML AMP ONE (07:15)
[2023-01-02] MEDS ORDERED: fentaNYL (PF) 50 MCG/ML 2 ML AMP ONE (07:16)
[2023-01-02] MEDS ORDERED: fentaNYL (PF) 50 MCG/ML 2 ML AMP IV ONE (07:45)
[2023-01-02] MEDS ORDERED: LIDOCAINE 1% INJ 10MG/ML (5 ML VIAL-PF) SQ ONE (07:49)
[2023-01-02] MEDS ORDERED: VERAPAMIL SYRINGE (5 MG/10 ML) INTRAARTER ONE (07:52)
[2023-01-02] MEDS ORDERED: HEPARIN SODIUM 1,000 UN/ML (10ML VL) IV ONE (08:06)
[2023-01-02] MEDS ORDERED: IOPAMIDOL-370 100ML BTL INJ ONE ×2 (08:07→08:24)
[2023-01-02] MEDS ORDERED: NITROGLYCERIN 1000MCG/10ML SYRINGE INTRACORON ONE (08:12)
[2023-01-02] MEDS ORDERED: CLOPIDOGREL 75 MG TAB ONE (08:28)
[2023-01-02] MEDS ORDERED: ZOLPIDEM 5 MG TAB PO PRN (08:35)
[2023-01-02] MEDS ORDERED: ATROPINE SULFATE 0.1 MG/ML 10ML SYRINGE IV PRN (08:35)
[2023-01-02] MEDS ORDERED: RX INFO: IV CONTRAST WAS GIVEN 1 EACH MISC MISCELLANE PRN (08:35)
[2023-01-02] MEDS ORDERED: MAG HYDROX/AL HYDROX/SIMETH 30 ML CUP PO PRN (08:35)
--- NOTE | 2023-01-02 08:44 | P.CARDCATH ---
Date of Procedure: 01/02/23 Description of Procedure: Cardiac Catheterization: The patient is a 67-year-old male with a known history of hypertension, hyperlipidemia who presented one month ago with symptoms of unstable angina, underwent cardiac catheterization was found to have critical stenosis in the proximal LAD and the mid left circumflex. He underwent stenting of the LAD and he presented today for reevaluation of his left circumflex. Recommendations were made regarding cardiac catheterization, the risks and the complications were discussed with the patient who is in full understanding and agreement. Procedure Description: Patient was brought to dental laboratory technician apprentice in fasting semi-sedated state after receiving Fentanyl and Benadryl achieiving moderate conscious sedated state. Using Xylocaine Anesthesia and Seldinger technique, a 6-Palestinian sheath was introduced in the left radial artery . Subsequently, selective coronary angiography was performed using a 5-Palestinian 4 bend right Rachelle catheter. Attempts to cannulate the left main using the 6- Palestinian EBU 3.75 guiding catheter was unsuccessful, it was exchanged to a 6-Palestinian CLS 4. Multiple views of the coronary artery including hemiaxial views were obtained. The right Rachelle catheter was used to cross the aortic valve and LVEDP was calculated. PCI: Using the CLS 4 guiding catheter and after cannulating the left main a 0.014 BMW J-wire was positioned and the second OM. A 2.5 x 12 mm NC Treck balloon was advanced into inflation at 8 jair were done subsequently a 2.5 x 28 mm Xience katharine point stent was deployed at 16 jair. After removing the wire images were obtained and revealed stable successful stenting. Following that, catheter and sheath were removed. Hemostasis was obtained with deployment of TR band . There was no immediate complication. Patient was returned to room in stable condition. Of note, the patient received a total of 7000 units of intravenous heparin as well as intra-arterial verapamil. His ACT was monitored. He was continued on clopidogrel. He had no chest discomfort or EKG changes with the inflations. Findings: Fluoroscopy: Calcifications of the LAD was noted. Left main: This is a large size vessel, bifurcating into LAD and left circumflex, the left main has no high-grade stenosis. LAD: This is a large size vessel, reaching to the apex with a wraparound apex segment. The stented segment in the proximal LAD revealed no evidence of restenosis. There is a 50-60% eccentric mid lesion, the rest of the vessel has no high-grade stenosis Left circumflex: This is a nondominant vessel been dressed to 2 obtuse marginal branch, the first obtuse marginal branch has a 60% plaque proximally. After the takeoff of the first obtuse marginal branch there is an 80% tubular lesion, the rest of the vessel has no high-grade stenosis. RCA: This is a dominant vessel, bifurcating into PDA and PLV, the RCA has mild disease with no high-grade stenosis. Left Ventriculogram: Not performed Hemodynamics: There was no gradient across the aortic valve , LVEDP was 12-16 mmHg Conclusion: 1. Calcified LAD 2. Patent stent in the LAD with moderate disease in the mid LAD 3. Significant stenosis in the mid left circumflex 4. Mild disease in the RCA 5. Successful stenting of the mid left circumflex with reduction of stenosis from 80% to 0% Recommendations: The patient will continue on aspirin and clopidogrel for 6 months with no interruption in addition to aggressive coronary risks modifications. The findings and the recommendations were discussed with the patient and the family and they were in full understanding and agreement. Duration of sedation is 32 minutes.
[2023-01-02] MEDS ORDERED: CLOPIDOGREL 75 MG TAB PO ONE (08:46)
[2023-01-02 11:03] VITALS: PULSE 63
[2023-01-02 13:17] VITALS: BP 123/69
[2023-01-02] MEDS ORDERED: METOPROLOL SUCCINATE (ER) 25 MG TAB.ER.24H PO SCH (21:00)
[2023-01-02] MEDS ORDERED: ASPIRIN 81 MG PO SCH (21:00)
[2023-01-02] MEDS ORDERED: ATORVASTATIN 80 MG TAB PO SCH (21:00)
[2023-01-02] MEDS ORDERED: CLOPIDOGREL 75 MG TAB PO SCH (21:00)
[2023-01-03] MEDS ORDERED: LOSARTAN 50 MG TAB PO SCH (09:00)
[2023-01-03] MEDS ORDERED: hydroCHLOROthiazide 12.5 MG CAP PO SCH (09:00)
== END 2023-01-02 12:31 | disposition home or self-care (01) ==
LOC: CATHCVL 05:39
PROVIDERS: ATTEND Internal Medicine Interventional Cardiology
DX: I25.110 Atherosclerotic heart disease of native coronary artery with unstable angina pectoris (principal); I10 Essential (primary) hypertension; E78.5 Hyperlipidemia, unspecified; Z87.891 Personal history of nicotine dependence; Z79.02 Long term (current) use of antithrombotics/antiplatelets; Z79.82 Long term (current) use of aspirin; Z79.899 Other long term (current) drug therapy
CPT/HCPCS: 93458; 85025; 99152; 99153; C9600; C1769 ×3; C1887; C1894; C1874; C1725; J2001; J3010; J1644; Q9967

== ENCOUNTER → 2023-01-14 | Outpatient (CLI) | payer MEDICARE ==
[2023-01-14 11:38] LABS: ALT 30 U/L (10-49); AST 29 U/L (14-35); Chol/HDL Ratio 2.22 Ratio; LDL Cholesterol,Calculated 52.9 mg/dL (0.0-131.0); VLDL Calculation 11.98 mg/dL (5.00-40.00)
== END | disposition home or self-care (01) ==
LOC: LABWHC1 06:53
PROVIDERS: ATTEND Internal Medicine Interventional Cardiology
DX: E78.2 Mixed hyperlipidemia (principal)
CPT/HCPCS: 36415; 80061; 84450; 84460

== ENCOUNTER → 2023-05-03 | Outpatient (CLI) | payer MEDICARE ==
[2023-05-03 14:19] LABS: Chol/HDL Ratio 2.45 Ratio; VLDL Calculation 14.16 mg/dL (5.00-40.00)
[2023-05-03 14:20] LABS: ALT 22 U/L (10-49); AST 20 U/L (14-35); LDL Cholesterol,Calculated 62.2 mg/dL (0.0-131.0)
== END | disposition home or self-care (01) ==
LOC: LABWHC1 08:27
PROVIDERS: ATTEND Internal Medicine Interventional Cardiology
DX: E78.2 Mixed hyperlipidemia (principal)
CPT/HCPCS: 36415; 80061; 84450; 84460

== ENCOUNTER → 2024-05-26 | Outpatient (CLI) | payer MEDICARE ==
[2024-05-26 10:32] LABS: ALT 29 U/L (10-49); AST 27 U/L (14-35); Albumin 4.3 g/dL (3.8-4.9); Albumin/Globulin Ratio 1.65 Ratio (1.60-3.17); Alkaline Phosphatase 76 U/L (41-126); Blood Urea Nitrogen 22.2 mg/dL (9.0-27.0); Calcium 9.5 mg/dL (8.7-10.3); Carbon Dioxide 28.1 mmol/L (21.6-31.8); Chloride 105 mmol/L (96-109); Chol/HDL Ratio 2.17 Ratio; Globulin 2.6 g/dL (1.6-3.3); Glucose 105 mg/dL (70-110); LDL Cholesterol,Calculated 67.4 mg/dL (0.0-131.0); Potassium 4.4 mmol/L (3.5-5.5); Sodium 141 mmol/L (135-145); Total Bilirubin 0.5 mg/dL (0.3-1.2); Total Protein 6.9 g/dL (6.2-8.2); VLDL Calculation 12.28 mg/dL (5.00-40.00)
== END | disposition home or self-care (01) ==
LOC: LABWHC1 07:01
PROVIDERS: ATTEND Nurse Practitioner Adult Health
DX: I10 Essential (primary) hypertension (principal); E78.2 Mixed hyperlipidemia
CPT/HCPCS: 36415; 80053; 80061

== ENCOUNTER → 2024-07-12 | Outpatient (CLI) | payer MEDICARE ==
--- NOTE | 2024-07-12 14:30 | US ---
EXAMINATION TYPE: US carotid duplex BILAT DATE OF EXAM: 07/12/2024 COMPARISON: NONE CLINICAL INDICATION: Male, 68 years old with history of I65.23 CAROTID STENOSIS; screening TECHNIQUE: Grayscale, color Doppler and spectral Doppler evaluation of the bilateral carotid systems and vertebral arteries. Indirect Doppler criteria was utilized. FINDINGS: EXAM MEASUREMENTS: RIGHT: Peak Systolic Velocity (PSV) cm/sec ----- Right CCA: 106.2 ----- Right ICA: 89.7 ----- Right ECA: 119.8 ICA/CCA ratio: 0.8 RIGHT: End Diastole cm/sec ----- Right CCA: 24.8 ----- Right ICA: 30.0 ----- Right ECA: 18.1 LEFT: Peak Systolic Velocity (PSV) cm/sec ----- Left CCA: 88.9 ----- Left ICA: 92.2 ----- Left ECA: 103.4 ICA/CCA ratio: 1.0 LEFT: End Diastole cm/sec ----- Left CCA: 19.7 ----- Left ICA: 34.0 ----- Left ECA: 19.3 VERTEBRALS (direction of flow): Right Vertebral: Antegrade Left Vertebral: Antegrade Rhythm: Normal FABRIC WORKER FOREMAN NOTES: Mild to moderate plaque bilateral bifurcations. No evidence of increased velocitie s Color Doppler imaging shows patency with blood flow throughout the carotid artery. Spectral waveforms are within normal limits. IMPRESSION: Right: Less than 50% stenosis of the carotid bifurcation. Left: Less than 50% stenosis of the carotid bifurcation. Criteria for Assigning % of Stenosis / Diameter reduction (Estimation based on the indirect measurements of the internal carotid artery velocities (ICA PSV). 1. Normal (no stenosis)=ICA PSV < 125 cm/s: ratio < 2.0: ICA EDV<40 cm/s. 2. Less than 50% stenosis=ICA PSV < 125 cm/s: ratio < 2.0: ICA EDV<40 cm/s. 3. 50 to 69% stenosis=ICA PSV of 125 to 230 cm/s: ration 2.0 ? 4.0: ICA EDV 40-100 cm/s. 4. Greater than 70% stenosis to near occlusion= ICA PSV > 230 cm/s: ratio > 4.0: ICA EDV > 100 cm/s. 5. Near occlusion= ICA PSV velocities may be low or undetectable: variable ratio and ICA EDV. 6. Total occlusion=unable to detect flow. [facility], , 07/12/2024 2:28 PM
== END | disposition home or self-care (01) ==
LOC: RADUSWWP 13:43
PROVIDERS: ATTEND Internal Medicine
DX: I65.23 Occlusion and stenosis of bilateral carotid arteries (principal)
CPT/HCPCS: 93880